=== PATIENT | male | born 1965 | race Caucasian/White ===

== ENCOUNTER → 2018-04-02 | Outpatient (CLI) | payer BC ==
--- NOTE | 2018-04-02 11:18 | US ---
EXAMINATION TYPE: US abdomen complete DATE OF EXAM: 04/02/2018 COMPARISON: NONE CLINICAL HISTORY: R94.5 abnormal liver function studies. EXAM MEASUREMENTS: Liver Length: 16.6 cm Gallbladder Wall: 0.2 cm CBD: 0.4 cm Spleen: 14.6 cm Right Kidney: 13.5 x 6.3 x 7.8 cm Left Kidney: 12.9 x 6.2 x 6.9 cm technically difficult exam due to bowel gas and body habitus. Pancreas: limited visualization due to bowel gas and body habitus. Liver: difficult to penetrate Gallbladder: No stones seen Evidence for sonographic Felix's sign: No CBD: wnl Spleen: wnl Right Kidney: No hydronephrosis or masses seen Left Kidney: No hydronephrosis or masses seen Upper IVC: wnl Abd Aorta: not visualized due to bowel gas and body habitus. The visualized liver is heterogeneously hyperechoic. There is no worrisome intrahepatic ductal dilata tion. Evaluation for focal masses is suboptimal due to the heterogeneity. No surrounding ascites is s een. The intrahepatic portion of the IVC and visualized abdominal aorta are within normal limits. Th ere is no evidence of cholelithiasis. Common bile duct is unremarkable. The pancreas is suboptimall y evaluated on images saved secondary to shadowing from overlying bowel gas. The spleen is unremarka ble. Kidneys are symmetric and free of hydronephrosis. No renal lesions are seen. IMPRESSION: Heterogeneous hyperechoic appearance of liver could be on basis of diffuse fatty infiltra tion or underlying hepatocellular disease. Imaging guided random biopsy for tissue analysis can be pe rformed if desired.
== END | disposition home or self-care (01) ==
LOC: RADUSWWP 09:24
PROVIDERS: ATTEND Family Medicine
DX: R93.2 Abnormal findings on diagnostic imaging of liver and biliary tract (principal); R94.5 Abnormal results of liver function studies
CPT/HCPCS: 76700

== ENCOUNTER → 2019-05-20 | Outpatient (CLI) | payer BC ==
--- NOTE | 2019-05-20 10:35 | XR ---
EXAMINATION TYPE: XR chest 2V DATE OF EXAM: 05/20/2019 COMPARISON: NONE HISTORY: Productive cough for one month. TECHNIQUE: Frontal and lateral views of the chest are obtained. FINDINGS: Reticular interstitial changes most prominent in the lung bases. There is no suspicious foc al air space opacity, pleural effusion, or pneumothorax seen. The cardiac silhouette size is upper l imits of normal. The osseous structures are intact. IMPRESSION: Nonspecific reticular interstitial changes bilateral lower lungs could reflect edema, and /or mild fibrosis. Atypical infiltrate not excluded. Correlation with old outside chest x-ray would b e beneficial.
== END | disposition home or self-care (01) ==
LOC: RADXRYALE 10:08
PROVIDERS: ATTEND Physician Assistant Medical
DX: R05 Cough (principal)
CPT/HCPCS: 71046

== ENCOUNTER → 2019-05-27 | Outpatient (CLI) | payer BC ==
--- NOTE | 2019-05-27 08:59 | XR ---
EXAMINATION TYPE: XR chest 2V DATE OF EXAM: 05/27/2019 COMPARISON: May 20, 2019 HISTORY: Shortness of breath TECHNIQUE: Frontal and lateral views of the chest are obtained. FINDINGS: Scattered senescent parenchymal changes noted. Hyperinflation compatible with COPD. No evidence for infiltrate. No evidence for atelectasis. Heart size is stable. Mediastinal structures are stable and grossly unremarkable. No evidence for hilar prominence. Degenerative changes dorsal spine. IMPRESSION: 1. No evidence for acute pulmonary disease.
== END | disposition home or self-care (01) ==
LOC: RADXRYALE 08:32
PROVIDERS: ATTEND Physician Assistant Medical
DX: J15.9 Unspecified bacterial pneumonia (principal)
CPT/HCPCS: 71046

== ENCOUNTER → 2019-08-05 | Outpatient (CLI) | payer BC ==
--- NOTE | 2019-08-05 13:13 | XR ---
EXAMINATION TYPE: XR chest 2V DATE OF EXAM: 08/05/2019 COMPARISON: 05/27/2019 HISTORY: 54-year-old male shortness of breath and cough TECHNIQUE: Frontal and lateral views FINDINGS: Heart mildly enlarged. Diffuse interstitial densities in the lower lungs. Patchy posterior basilar op acity on the right. Overall appearance is relatively similar aside from increased density at the post erior base. IMPRESSION: 1. Similar cardiomegaly. 2. Chronic diffuse interstitial densities, possible chronic bronchitis or asthma. Component of inters titial fibrosis or pulmonary vascular congestion difficult to exclude. Clinically correlate. 3. New patchy right basilar atelectasis or early infiltrate.
== END | disposition home or self-care (01) ==
LOC: RADXRYALE 10:15
PROVIDERS: ATTEND Physician Assistant
DX: I51.7 Cardiomegaly (principal)
CPT/HCPCS: 71046

== ENCOUNTER → 2020-06-06 | Outpatient (CLI) | payer BC ==
--- NOTE | 2020-06-07 10:36 | MM ---
Reason for exam: clinical finding. Physical Findings: Nurse Summary: 2cm nodule in the left breast at 8 o'clock (nurse mj). [facility] Mammo w CAD SRAVANTHI Bilateral CC and MLO view(s) were taken. There are scattered fibroglandular densities. Mild bilateral gynecomastia. Benign intramammary lymph node laterally on the left. Palpable marker left lower inner quadrant. No suspicious mass, calcifications or other abnormality seen. These results were verbally communicated with the patient and result sheet given to the patient on 06/06/20. ASSESSMENT: Incomplete: need additional imaging evaluation, BI-RAD 0 RECOMMENDATION: Ultrasound of the left breast. (targeted to palpable)
--- NOTE | 2020-06-07 10:40 | USB ---
Reason for exam: additional evaluation requested from abnormal screening. US Breast Limited LT Left limited breast ultrasound including focal area of concern, retroareolar and axilla demonstrates a 2.0 x 1.3 x 2.5cm oval, solid, isoechoic lesion at 8 o'clock BB with posterior thru transmission. 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 Mild gynecomastia. If symptomatic, surgical excision can be considered. Scanned bilateral subareolar and left 6-9 o'clock. These results were verbally communicated with the patient and result sheet given to the patient on 06/06/20. ASSESSMENT: Benign, BI-RAD 2 RECOMMENDATION: Clinical management of the left breast. As clinically indicated. Surgical consultation can be considered if symptomatic or if otherwise excision is desired.
== END | disposition home or self-care (01) ==
LOC: RADMAMWWP 15:01
PROVIDERS: ATTEND Family Medicine
DX: N63.24 Unspecified lump in the left breast, lower inner quadrant (principal); R92.8 Other abnormal and inconclusive findings on diagnostic imaging of breast
CPT/HCPCS: 77066